=== PATIENT | female | born 1965 | race Caucasian/White ===

== ENCOUNTER 2018-09-07 16:03 | Inpatient (IN) | payer OTHER ==
[~2018-09-07] VITALS: Ht 175.3 cm; Wt 118.0 kg
[~2018-09-07 16:03] MED LIST: ALBU90OI; ALBU90OI INH; ARIP10 PO; AZIT250 PO; BASAGLAR K100 UNIT/1 SC; BUPR150T2 PO; Budeprion Xl300 MG PO; CEPH500 PO; CHEMO; CODBUTACEC PO; CYCL10; DOCU100 PO; ENAL10 PO; ENAL20 PO; FLUC200 PO; GLIP5 PO; GUAI600T33 PO; Humalog Mi100 UNIT/4 SC; INSLI100I SC; INSN100I; INSR10I; INSULANI SC; IRON; LACT10SY PO; LAVAP17G PO; METF500 PO; MULVITMINE; NAPR220 PO; NAPR500; OXYACE5T PO; PRED20 PO; PRILOSEC-OTC; Percocet 5-3251 EACH PO; QUET100; RANI150 PO; VENL75; Zofran4 MG PO; [UNRECOGNIZED DRUG - REMARK]; [UNRECOGNIZED DRUG - REMARK]
[2018-09-07 16:42] LABS: Source, Urine Clean Catch
[2018-09-07 16:57] LABS: Bilirubin, Urine Neg (Neg); Blood, Urine 5+ (Neg); Glucose Qualitative, Urine 4+ (Neg); Ketones, Urine Neg (Neg); Leukocyte Esterase, Urine 2+ (Neg); Nitrite, Urine Neg (Neg); Protein, Urine 2+ (Neg); Urobilinogen, Urine NORM (Normal)
[2018-09-07 17:05] LABS: BASOPHILS ABSOLUTE AUTO 0.12 K/mm3 (0.00-0.23); BASOPHILS PERCENT AUTO 1 % (0-2); EOSINOPHILS ABSOLUTE AUTO 0.83 K/mm3 (0.00-0.68); EOSINOPHILS PERCENT AUTO 5 % (0-6); Hematocrit 46.6 % (33.0-51.0); Hemoglobin 15.2 g/dL (11.5-16.0); IMMATURE GRAN ABSOLUTE AUTO 0.16 K/mm3 (0.00-0.10); IMMATURE GRAN PERCENT AUTO 1 % (0-1); LYMPHOCYTES ABSOLUTE AUTO 4.34 K/mm3 (0.84-5.20); LYMPHOCYTES PERCENT AUTO 25 % (21-46); MONOCYTES ABSOLUTE AUTO 1.16 K/mm3 (0.16-1.47); MONOCYTES PERCENT AUTO 7 % (4-13); Mean Corpuscular HGB Conc 32.6 g/dL (31.5-36.5); Mean Corpuscular Volume 92 fL (80-100); Mean Platelet Volume 10.1 fL (9.1-12.4); NEUTROPHILS ABSOLUTE AUTO 10.62 K/mm3 (1.96-9.15); NEUTROPHILS PERCENT AUTO 62 % (41-73); Platelet Count 352 K/mm3 (150-400); RDW Coefficient Variation 13.3 % (11.7-14.2); RDW Standard Deviation 44.9 fL (35.1-46.3); Red Blood Cell Count 5.06 M/mm3 (3.80-5.20); White Blood Cell Count 17.23 K/mm3 (4.00-11.30)
[2018-09-07 17:07] LABS: Appearance, Urine Hazy (Clear); Color, Urine Pale Yellow (P-Yellow)
[2018-09-07 17:10] LABS: Bacteria Few /hpf; Red Blood Cells, Urine 25-50 /hpf (0-2); Squamous Epithelial Cells Mod /hpf (Few)
[2018-09-07 17:43] LABS: Bilirubin, Total 0.4 mg/dL (0.1-1.0); Bun/Creatinine Ratio 19.6 (12.0-20.0); Calcium, Blood 9.5 mg/dL (8.5-10.1); Creatinine, Blood 1.07 mg/dL (0.40-1.00); Potassium, Blood 4.6 mmol/L (3.5-5.5)
[2018-09-07] MEDS ORDERED: CLOP75 PO (18:30)
[2018-09-07] MEDS ORDERED: ATOR40TA PO (18:30)
[2018-09-07] MEDS ORDERED: Calan40 MG PO (18:30)
[2018-09-07] MEDS ORDERED: OMEPRAZOLE20 MG PO (20:24)
[2018-09-07] MEDS ORDERED: ABAT250V (20:25)
[2018-09-07] MEDS ORDERED: CLON.5 PO (20:26)
[2018-09-07] MEDS ORDERED: LAMO25 PO ×2 (20:26)
[2018-09-07] MEDS ORDERED: CYCL10 PO (20:27)
[2018-09-07] MEDS ORDERED: Zanaflex4 M1 PO (20:27)
[2018-09-07] MEDS ORDERED: ASPI325 PO (20:28)
--- NOTE | 2018-09-07 21:27 | NUR ---
REPORT RECIEVED FROM DEVORAH REVELES RN AND AWAITING PT T/F TO ROOM 305.
--- NOTE | 2018-09-07 21:52 | NUR ---
PT T/F TO ROOM 305 AT 2146 VIA [employer]. PT ORIENTED TO ROOM AND CALL SYSTEM AT THAT TIME. SHE'S A/OX4, ABLE TO SPECIFY NEEDS AND HAS STEADY GAIT TRANSFERRING SELF TO BED. WILL COMPLETE ADMISSION PAPERWORK MOMENTARILY. PT DENIES NEEDS AT THIS TIME.
--- NOTE | 2018-09-07 22:05 | NUR ---
MARLA BIRMINGHAM IN ROOM AT THIS TIME. RN AWAITING ADMISSION ORDERS.
--- NOTE | 2018-09-07 23:54 | NUR ---
PT WAS TAKEN FOR ABDO CT AND HAS RETURNED VIA W/C. PAIN MEDS WERE RECIEVED PER EMAR, AWAITING FULL EFFECT BUT REPORTS SOME IMPROVEMENT ALREADY. HS MEDS WERE RECIEVED AND PT REFUSED MEDS SHE'D TAKEN DAILY ALREADY AT HOME BEFORE ADMIT. SHE DENIED NEEDING HS NOVOLOG COVERAGE D/T TYPICALLY ONLY DOING SS BID AT HOME. SHE IS RECEPTIVE TO AC/HS COVERAGE BUT WOULD LIKE TO START THIS IN AM. METFORMIN WASN'T RX'D AND MARLA BIRMINGHAM DENIED NEED FOR IT AT THIS TIME. NS COMMENCED AT 75 ML/HR. SCD'S ON AND PT IS S.TACH AT 100'S PER TELEMETRY. PT DENIES ADDITIONAL NEEDS AT THIS TIME.
--- NOTE | 2018-09-08 00:21 | NUR ---
TYLENOL RECIEVED PRN FOR C/O 09/23 ABDO, FLANK, SUPRAPUBIC AND BACK PAIN R/T PYELONEPHRITIS. WILL EVALUATE FOR EFFECT.
--- NOTE | 2018-09-08 04:10 | NUR ---
CLEAN CATCH UA OBTAINED AND SENT, CX PENDING.
[2018-09-08 04:37] LABS: Source, Urine Clean Catch
[2018-09-08 04:39] LABS: Bilirubin, Urine Neg (Neg); Blood, Urine 3+ (Neg); Glucose Qualitative, Urine 4+ (Neg); Ketones, Urine Neg (Neg); Leukocyte Esterase, Urine 1+ (Neg); Nitrite, Urine Neg (Neg); Protein, Urine 1+ (Neg); Specific Gravity, Urine 1.015 (1.003-1.022); Urobilinogen, Urine NORM (Normal)
[2018-09-08 04:44] LABS: Appearance, Urine Clear (Clear); Color, Urine Amber (P-Yellow); White Blood Cells, Urine 50-100 /hpf (0-5)
[2018-09-08 04:45] LABS: Bacteria Many /hpf; Squamous Epithelial Cells Few /hpf (Few)
[2018-09-08 04:53] LABS: BASOPHILS ABSOLUTE AUTO 0.12 K/mm3 (0.00-0.23); BASOPHILS PERCENT AUTO 1 % (0-2); EOSINOPHILS ABSOLUTE AUTO 0.83 K/mm3 (0.00-0.68); EOSINOPHILS PERCENT AUTO 7 % (0-6); IMMATURE GRAN PERCENT AUTO 1 % (0-1); LYMPHOCYTES ABSOLUTE AUTO 4.25 K/mm3 (0.84-5.20); LYMPHOCYTES PERCENT AUTO 37 % (21-46); MONOCYTES ABSOLUTE AUTO 0.91 K/mm3 (0.16-1.47); MONOCYTES PERCENT AUTO 8 % (4-13); Mean Corpuscular HGB 30.1 pg (26.0-34.0); Mean Corpuscular HGB Conc 32.5 g/dL (31.5-36.5); Mean Corpuscular Volume 93 fL (80-100); Mean Platelet Volume 10.3 fL (9.1-12.4); NEUTROPHILS ABSOLUTE AUTO 5.32 K/mm3 (1.96-9.15); NEUTROPHILS PERCENT AUTO 46 % (41-73); Platelet Count 327 K/mm3 (150-400); RDW Coefficient Variation 13.2 % (11.7-14.2); RDW Standard Deviation 45.1 fL (35.1-46.3); Red Blood Cell Count 4.32 M/mm3 (3.80-5.20); White Blood Cell Count 11.53 K/mm3 (4.00-11.30)
[2018-09-08 05:09] LABS: Anion Gap 8 mmol/L (6-16); Blood Urea Nitrogen 18 mg/dL (8-24); CO2, Blood 24 mmol/L (21-32); Calcium, Blood 8.8 mg/dL (8.5-10.1); Chloride, Blood 106 mmol/L (98-108); Creatinine, Blood 0.78 mg/dL (0.40-1.00); Glomerular Filtration Rate >60 (60-); Glucose, Blood 243 mg/dL (70-99); Magnesium, Blood 1.9 mg/dL (1.6-2.4); Potassium, Blood 3.9 mmol/L (3.5-5.5); Sodium, Blood 138 mmol/L (136-145)
--- NOTE | 2018-09-08 06:37 | NUR ---
SUMMARY: A/OX4, CALLS APPROPRIATELY AND INDEPENDENT IN ROOM. PT DENIES NAUSEA BUT HAS ABDO, FLANK AND BACK PAIN R/T PYELONEPHRITIS. PT REPORTED TOLERALE PAIN CONTROL AFTER RECIEVING PYRIDIUM, PRN TYLENOL AND SCHEDULED MUSCLE RELAXERS/PAIN MEDS VIA EMAR. SHE HAD ABDO CT THIS SHIFT, SEE RESULT FOR DETAILS. NS WAS COMMENCED AND IV ABX RECIEVED. BOLUSES WERE RECIEVED IN ER. PT TOOK HS MEDS BUT REFUSED DAILY MEDS ALREADY TAKEN PRIOR TO ADMIT. SHE ALSO REFUSED HS NOVOLOG D/T TYPICALLY ONLY TAKING MED BID BUT RECOGNIZES POOR ADA MANAGEMENT AT HOME AND IS WILLING TO COMMMENCE AC/HS COVERAGE TODAY. SCHEDULED LANTUS RECIEVED AND MD DENIED NEED TO RX HOME METFORMIN AT THIS TIME. SHE'S S.TACH AT 90'S-100'S PER TELEMETRY W/VSS AND AFEBRILE. WCTM/REPORT TO DAY RN.
--- NOTE | 2018-09-08 11:00 | NUR ---
Patient is lying in bed and alert. 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 She also shares about the discouragement of long and difficult road of health problems. I listen empathically, explore patients belief system, facilitate a life review, learn about patient's family unit complications, provide pastoral high school counselor and provide prayer. Patient responds well to all interventions and shows signs of restored suzan.
--- NOTE | 2018-09-08 12:17 | NUR ---
Upon receiving a patient referral, I entered patient's room. Patient openly shares about her life, her family and her suzan. Patient mentioned that she is deep pain (8+), nurse enters room shortly after me to administer pain meds. RN says this will make you sleepy, while patient is receiving meds. I provide prayer and patient thanks me. I will continue to be available to patient and family.
--- NOTE | 2018-09-08 16:59 | NUR ---
SHIFT SUMMARY: PATIENT HAS BEEN A/O X 3 THIS SHIFT WITH C/O PAIN TO LOW BACK/FLANK AND STATES THAT THE ORDERED PAIN MEDICATION WAS EFFECTIVE WHEN GIVEN. CBGS HAVE BEEN COVERED WITH SLIDING SCALE AND PATIENT HAS NO S/S OF HYPER/HYPOGLYCEMIA. IV FLUIDS INFUSING VIA PERIPHERAL LINE WITH NO ISSUES OBSERVED. PATIENT HAS BEEN SLEEPING/RESTING MOST OF SHIFT AND USES CALL LIGHT APPROPRIATELY WHEN NEEDED.
--- NOTE | 2018-09-09 05:19 | NUR ---
SHIFT SUMMARY PT ALERT AND ORIENTED, UP TO BATHROOM WITH SBA. PT WITH C/O PAIN AND NAUSEA MEDICATED X1 WITH ZOFRAN AND DILAUDID. SLEPT WELL, NO ACUTE EVENTS NOTED DURING THE NIGHT. WILL CONTINUE TO MONITOR.
[2018-09-09 05:40] LABS: BASOPHILS PERCENT AUTO 1 % (0-2); EOSINOPHILS PERCENT AUTO 9 % (0-6); Hematocrit 39.6 % (33.0-51.0); Hemoglobin 12.9 g/dL (11.5-16.0); IMMATURE GRAN PERCENT AUTO 1 % (0-1); LYMPHOCYTES ABSOLUTE AUTO 3.36 K/mm3 (0.84-5.20); LYMPHOCYTES PERCENT AUTO 32 % (21-46); MONOCYTES PERCENT AUTO 7 % (4-13); Mean Corpuscular HGB 29.8 pg (26.0-34.0); Mean Corpuscular HGB Conc 32.6 g/dL (31.5-36.5); Mean Corpuscular Volume 92 fL (80-100); Mean Platelet Volume 10.1 fL (9.1-12.4); NEUTROPHILS ABSOLUTE AUTO 5.29 K/mm3 (1.96-9.15); NEUTROPHILS PERCENT AUTO 51 % (41-73); Platelet Count 292 K/mm3 (150-400); RDW Coefficient Variation 13.2 % (11.7-14.2); RDW Standard Deviation 44.2 fL (35.1-46.3); Red Blood Cell Count 4.33 M/mm3 (3.80-5.20); White Blood Cell Count 10.45 K/mm3 (4.00-11.30)
[2018-09-09 05:57] LABS: Anion Gap 7 mmol/L (6-16); Blood Urea Nitrogen 14 mg/dL (8-24); Bun/Creatinine Ratio 19.8 (12.0-20.0); CO2, Blood 26 mmol/L (21-32); Calcium, Blood 9.6 mg/dL (8.5-10.1); Chloride, Blood 104 mmol/L (98-108); Creatinine, Blood 0.71 mg/dL (0.40-1.00); Glomerular Filtration Rate >60 (60-); Glucose, Blood 250 mg/dL (70-99); Potassium, Blood 4.6 mmol/L (3.5-5.5); Sodium, Blood 137 mmol/L (136-145)
--- NOTE | 2018-09-09 16:53 | NUR ---
SUMMARY PT RESTING QUIETLY IN BED WATCHING TV, PT HAS BEEN INDEPENDENT IN THE ROOM, PT HAS BEEN PLEASANT AND COOPERATIVE WITH CARE, WILL HAVE A CT SCAN THIS AFTERNOON, NO COMPLAINTS, VSS, WILL CONT TO MONITOR
[2018-09-10 04:58] LABS: BASOPHILS ABSOLUTE AUTO 0.09 K/mm3 (0.00-0.23); BASOPHILS PERCENT AUTO 1 % (0-2); EOSINOPHILS ABSOLUTE AUTO 0.89 K/mm3 (0.00-0.68); EOSINOPHILS PERCENT AUTO 8 % (0-6); Hematocrit 39.7 % (33.0-51.0); Hemoglobin 12.9 g/dL (11.5-16.0); IMMATURE GRAN ABSOLUTE AUTO 0.09 K/mm3 (0.00-0.10); IMMATURE GRAN PERCENT AUTO 1 % (0-1); LYMPHOCYTES ABSOLUTE AUTO 3.28 K/mm3 (0.84-5.20); LYMPHOCYTES PERCENT AUTO 28 % (21-46); MONOCYTES ABSOLUTE AUTO 0.72 K/mm3 (0.16-1.47); MONOCYTES PERCENT AUTO 6 % (4-13); Mean Corpuscular HGB 29.8 pg (26.0-34.0); Mean Corpuscular HGB Conc 32.5 g/dL (31.5-36.5); Mean Corpuscular Volume 92 fL (80-100); Mean Platelet Volume 9.9 fL (9.1-12.4); NEUTROPHILS ABSOLUTE AUTO 6.54 K/mm3 (1.96-9.15); NEUTROPHILS PERCENT AUTO 56 % (41-73); Platelet Count 290 K/mm3 (150-400); RDW Coefficient Variation 13.1 % (11.7-14.2); RDW Standard Deviation 44.2 fL (35.1-46.3); Red Blood Cell Count 4.33 M/mm3 (3.80-5.20); White Blood Cell Count 11.61 K/mm3 (4.00-11.30)
[2018-09-10 05:37] LABS: Anion Gap 7 mmol/L (6-16); Blood Urea Nitrogen 14 mg/dL (8-24); Bun/Creatinine Ratio 18.2 (12.0-20.0); CO2, Blood 27 mmol/L (21-32); Calcium, Blood 9.8 mg/dL (8.5-10.1); Chloride, Blood 104 mmol/L (98-108); Creatinine, Blood 0.77 mg/dL (0.40-1.00); Glomerular Filtration Rate >60 (60-); Glucose, Blood 262 mg/dL (70-99); Potassium, Blood 4.3 mmol/L (3.5-5.5); Sodium, Blood 138 mmol/L (136-145)
--- NOTE | 2018-09-10 05:49 | NUR ---
SHIFT SUMMARY PT SLEPT FAIR DURING THE NIGHT. MEDICATED WITH TYLENOL THIS AM FOR A HEADACHE. UP TO BATHROOM PER SELF. NO ACUTE EVENTS OVERNIGHT, WILL CONTINUE TO MONITOR.
--- NOTE | 2018-09-10 05:51 | NUR ---
SHIFT SUMMARY PT HAS SLEPT ALL NIGHT, OFFERS NO C/O'S. NO ACUTE EVENTS OVER NIGHT, WILL CONTINUE TO MONITOR.
[2018-09-10] MEDS ORDERED: Vsl#3 Capsule1 EACH PO (10:12)
[2018-09-10] MEDS ORDERED: CEPH500 PO (10:13)
--- NOTE | 2018-09-10 11:18 | NUR ---
SUMMARY PT DISCHARGED TO HOME, PT VERBALIZED UNDERSTANDING OF DISCHARGE INSTRUCTIONS, PT BEING FOLLOWED BY [facility] AND FOLLOW UP HAS BEEN MADE, PT WILL BE HERE UNTIL AFTER LUNCH
--- NOTE | 2018-09-10 13:43 | NUR ---
SUMMARY/DISCHARGE PT DISCHARGED TO HOME, PT DECLINED A WHEELCHAIR AND WAS ABLE TO AMBULATE SAFELY TO THE ELEVATOR
== END 2018-09-10 12:59 | disposition home or self-care (01) | DRG 872 ==
LOC: ER 16:03 → MEDS 20:01 → ENPENDDIS 09-10 10:17 → MEDS 09-10 12:59
PROVIDERS: Emergency Medicine; Internal Medicine; Nurse Practitioner Acute Care; ADMIT Internal Medicine
DX: A41.51 Sepsis due to Escherichia coli [E. coli] (principal); N10 Acute pyelonephritis; N17.9 Acute kidney failure, unspecified; C85.90 Non-Hodgkin lymphoma, unspecified, unspecified site; E11.65 Type 2 diabetes mellitus with hyperglycemia; I10 Essential (primary) hypertension; F32.9 Major depressive disorder, single episode, unspecified; E78.5 Hyperlipidemia, unspecified; K21.9 Gastro-esophageal reflux disease without esophagitis; F41.1 Generalized anxiety disorder; E86.0 Dehydration; E66.01 Morbid (severe) obesity due to excess calories; Z86.73 Personal history of transient ischemic attack (TIA), and cerebral infarction without residual deficits; Z88.5 Allergy status to narcotic agent; Z79.84 Long term (current) use of oral hypoglycemic drugs; Z79.02 Long term (current) use of antithrombotics/antiplatelets; Z79.4 Long term (current) use of insulin; Z79.899 Other long term (current) drug therapy; Z3A.36 36 weeks gestation of pregnancy; Z87.891 Personal history of nicotine dependence
CPT/HCPCS: 36415; 74176; 74177; 80048; 80053; 81001; 82947; 83605; 83735; 85025; 87040; 87077; 87086; 87186; 96361; 96374; 96375; 99284-25; A9270; J0696; J1170; J1650; J2405; J7030; Q9967

== ENCOUNTER → 2018-10-27 | Outpatient (CLI) | payer OTHER ==
[~2018-10-27] MED LIST changes: +ABAT250V; +ASPI325 PO; +ATOR40TA PO; +CLON.5 PO; +CLOP75 PO; +CYCL10 PO; +Calan40 MG PO; +LAMO25 PO; +OMEPRAZOLE20 MG PO; +Vsl#3 Capsule1 EACH PO; +Zanaflex4 M1 PO
[2018-10-27 15:14] LABS: Source, Urine Clean Catch
[2018-10-27 18:41] LABS: Bilirubin, Urine Neg (Neg); Blood, Urine 1+ (Neg); Glucose Qualitative, Urine 4+ (Neg); Ketones, Urine 1+ (Neg); Leukocyte Esterase, Urine 2+ (Neg); Nitrite, Urine Pos (Neg); Protein, Urine 2+ (Neg); Specific Gravity, Urine 1.015 (1.003-1.022); Urobilinogen, Urine NORM (Normal)
[2018-10-27 19:25] LABS: Appearance, Urine Hazy (Clear); Color, Urine Yellow (P-Yellow)
[2018-10-27 19:26] LABS: Bacteria Many /hpf; Red Blood Cells, Urine 0-2 /hpf (0-2); Squamous Epithelial Cells Few /hpf (Few); White Blood Cells, Urine 25-50 /hpf (0-5)
== END ==
LOC: LAB SHORT 14:57 → LAB 14:57
PROVIDERS: Nurse Practitioner Family
DX: R30.0 Dysuria (principal)
CPT/HCPCS: 81001; 87077; 87086; 87186

== ENCOUNTER → 2018-11-12 | Outpatient (CLI) | payer OTHER ==
[2018-11-12 17:19] LABS: Bilirubin, Urine Neg (Neg); Blood, Urine Neg (Neg); Glucose Qualitative, Urine 4+ (Neg); Ketones, Urine Neg (Neg); Leukocyte Esterase, Urine Neg (Neg); Nitrite, Urine Pos (Neg); Protein, Urine Neg (Neg); Specific Gravity, Urine 1.015 (1.003-1.022); Urobilinogen, Urine NORM (Normal)
[2018-11-12 17:29] LABS: Appearance, Urine Clear (Clear); Color, Urine Yellow (P-Yellow)
[2018-11-12 17:34] LABS: Red Blood Cells, Urine 0-2 /hpf (0-2)
[2018-11-12 17:35] LABS: Bacteria Many /hpf
[2018-11-12 17:36] LABS: Squamous Epithelial Cells Rare /hpf (Few)
== END | disposition home or self-care (01) ==
LOC: LAB 17:04 → LAB SHORT 17:04
PROVIDERS: Internal Medicine Hematology & Oncology
DX: N39.0 Urinary tract infection, site not specified (principal); R30.0 Dysuria
CPT/HCPCS: 81001; 87077; 87086; 87186

== ENCOUNTER → 2018-12-16 | Outpatient (CLI) | payer OTHER | END | disposition home or self-care (01) | LOC: LAB 10:00 → LAB SHORT 10:00 → LAB FUT 12-16 18:10 | DX: N39.0 Urinary tract infection, site not specified (principal) | CPT/HCPCS: 87077; 87086; 87186 ==

== ENCOUNTER → 2019-01-22 | Outpatient (CLI) | payer OTHER ==
[2019-01-22 19:59] LABS: CHOL/HDL RATIO 4.4; Cholesterol 172 mg/dL (50-200); HDL Cholesterol 39 mg/dL (>39); LDL/HDL RATIO Unable to Calculate; Low Density Lipoprotein Chol Unable to Calculate mg/dL (0-110); Triglycerides 443 mg/dL (30-160); Very Low Density Lipoprot Chol 89 mg/dL (6-32)
== END | disposition home or self-care (01) ==
LOC: LAB 15:15 → LAB SHORT 15:15
DX: E11.8 Type 2 diabetes mellitus with unspecified complications (principal)
CPT/HCPCS: 80061; 83036

== ENCOUNTER → 2019-04-23 | Outpatient (CLI) | payer OTHER | END | disposition home or self-care (01) | LOC: LAB 19:16 → LAB SHORT 19:16 → EDSTATUS 04-23 18:35 → LAB FUT 04-23 18:35 | DX: E78.2 Mixed hyperlipidemia (principal); E11.65 Type 2 diabetes mellitus with hyperglycemia; N39.0 Urinary tract infection, site not specified | CPT/HCPCS: 87086 ==

== ENCOUNTER → 2019-11-11 | Outpatient (CLI) | payer OTHER ==
[2019-11-12 11:51] LABS: Candida species (DNA Probe) Positive (NEGATIVE); G. vaginalis (DNA Probe) Negative (NEGATIVE); T. vaginalis (DNA Probe) Negative (NEGATIVE)
[2019-11-12 14:08] LABS: HPV 16 Negative (Negative); HPV 18 Negative (Negative); HPV OTHER HR TYPES Negative (Negative)
== END ==
LOC: LAB SHORT 14:03 → LAB UCHC 14:03
PROVIDERS: Nurse Practitioner
DX: Z01.419 Encounter for gynecological examination (general) (routine) without abnormal findings (principal)
CPT/HCPCS: 87480; 87510; 87624; 87660; G0123

== ENCOUNTER 2020-08-31 22:12 | Observation (INO) | payer OTHER ==
[~2020-08-31] VITALS: Ht 175.3 cm; Wt 113.4 kg
[~2020-08-31 22:12] MED LIST changes: -ENAL20 PO; +HUMALOG MI100 UNIT/1 SC; -Humalog Mi100 UNIT/4 SC
[2020-08-31 23:26] LABS: BASOPHILS ABSOLUTE AUTO 0.26 K/mm3 (0.00-0.23); BASOPHILS PERCENT AUTO 1 % (0-2); EOSINOPHILS ABSOLUTE AUTO 0.87 K/mm3 (0.00-0.68); EOSINOPHILS PERCENT AUTO 4 % (0-6); Hematocrit 46.2 % (33.0-51.0); Hemoglobin 15.3 g/dL (11.5-16.0); Mean Corpuscular HGB Conc 33.1 g/dL (31.5-36.5); Mean Corpuscular Volume 94 fL (80-100); Mean Platelet Volume 10.2 fL (9.1-12.4); Platelet Count 336 K/mm3 (150-400); RDW Coefficient Variation 13.3 % (11.7-14.2); Red Blood Cell Count 4.93 M/mm3 (3.80-5.20); White Blood Cell Count 22.11 K/mm3 (4.00-11.30)
[2020-08-31 23:27] LABS: IMMATURE GRAN ABSOLUTE AUTO 0.41 K/mm3 (0.00-0.10); IMMATURE GRAN PERCENT AUTO 2 % (0-1); LYMPHOCYTES ABSOLUTE AUTO 6.61 K/mm3 (0.84-5.20); LYMPHOCYTES PERCENT AUTO 30 % (21-46); MONOCYTES ABSOLUTE AUTO 1.21 K/mm3 (0.16-1.47); MONOCYTES PERCENT AUTO 6 % (4-13); NEUTROPHILS ABSOLUTE AUTO 12.75 K/mm3 (1.96-9.15); NEUTROPHILS PERCENT AUTO 58 % (41-73)
[2020-08-31 23:43] LABS: Alanine Aminotransfer (ALT/SGP 63 U/L (12-78); Albumin, Blood 3.8 g/dL (3.4-5.0); Albumin/Globulin Ratio 0.9 (0.8-1.8); Alk Phos 145 U/L (50-136); Anion Gap 11 mmol/L (6-16); Aspartate Aminotrans (AST/SGOT 45 U/L (12-37); Bilirubin, Total 0.4 mg/dL (0.1-1.0); Blood Urea Nitrogen 26 mg/dL (8-24); Bun/Creatinine Ratio 27.1 (12.0-20.0); CO2, Blood 22 mmol/L (21-32); Chloride, Blood 97 mmol/L (98-108); Creatinine, Blood 0.96 mg/dL (0.40-1.00); Globulin, Blood 4.2 g/dL (2.2-4.0); Glomerular Filtration Rate >60 (60-); Glucose, Blood 465 mg/dL (70-99); Sodium, Blood 130 mmol/L (136-145)
[2020-09-01 04:57] LABS: Hematocrit 42.6 % (33.0-51.0); Hemoglobin 14.3 g/dL (11.5-16.0); Mean Corpuscular HGB 31.2 pg (26.0-34.0); Mean Corpuscular HGB Conc 33.6 g/dL (31.5-36.5); Mean Corpuscular Volume 93 fL (80-100); Mean Platelet Volume 10.2 fL (9.1-12.4); Platelet Count 277 K/mm3 (150-400); RDW Coefficient Variation 13.3 % (11.7-14.2); RDW Standard Deviation 44.8 fL (35.1-46.3); Red Blood Cell Count 4.59 M/mm3 (3.80-5.20); White Blood Cell Count 18.39 K/mm3 (4.00-11.30)
[2020-09-01 05:20] LABS: BAND PERCENT MAN 5 % (0-8); BASOPHILS PERCENT MAN 0 % (0-2); EOSINOPHILS ABSOLUTE MAN 0.18 K/mm3 (0.00-0.68); EOSINOPHILS PERCENT MAN 1 % (0-6); LYMPHOCYTES ABSOLUTE MAN 8.09 K/mm3 (0.84-5.20); LYMPHOCYTES PERCENT MAN 44 % (21-46); METAMYELOCYTE ABSOLUTE MAN 0.18 K/mm3 (0.00-0.00); METAMYELOCYTE PERCENT MAN 1 % (0-0); MONOCYTES ABSOLUTE MAN 1.47 K/mm3 (0.16-1.47); MONOCYTES PERCENT MAN 8 % (4-13); NEUTROPHILS ABSOLUTE MAN 8.45 K/mm3 (1.96-9.15); SEG NEUTROPHILS PERCENT MAN 41 % (41-73); TOTAL CELLS COUNTED 100
--- NOTE | 2020-09-01 05:20 | NUR ---
PATIENT IS A NEW ADMIT FROM THE ED. TWO ASSIST STAND/PIVOT TRANSFER FROM [facility] [place] TO BED REPORTING DIZZY WITH MOVEMENT. AXOX 4 ON ROOM AIR. TELEMETRY PLACED AND TECH REPORTS ST 101. DENIES CHEST PAIN, SOB, AND N/V. PATIENT ORIENTED TO ROOM AND CALL LIGHT SYSTEM. REPORTS SHE AND HER DAUGHTER LIVE WITH HER NEICE AT THIS TIME. PATIENT REPORTS CHECKING HER GLUCOSE ONCE PER MONTH AND T2DM SINCE 1993. WATCHING TV AFTER ADMISSION. CALL LIGHT IN REACH.
[2020-09-01 05:24] LABS: Alanine Aminotransfer (ALT/SGP 52 U/L (12-78); Albumin, Blood 3.5 g/dL (3.4-5.0); Alk Phos 149 U/L (50-136); Anion Gap 8 mmol/L (6-16); Aspartate Aminotrans (AST/SGOT 28 U/L (12-37); Bilirubin, Total 0.2 mg/dL (0.1-1.0); Blood Urea Nitrogen 25 mg/dL (8-24); Bun/Creatinine Ratio 27.8 (12.0-20.0); CO2, Blood 24 mmol/L (21-32); Calcium, Blood 8.9 mg/dL (8.5-10.1); Chloride, Blood 100 mmol/L (98-108); Globulin, Blood 3.5 g/dL (2.2-4.0); Glomerular Filtration Rate >60 (60-); Glucose, Blood 329 mg/dL (70-99); Potassium, Blood 4.3 mmol/L (3.5-5.5); Sodium, Blood 132 mmol/L (136-145)
--- NOTE | 2020-09-01 06:28 | NUR ---
NS STARTED AT 75mL/HR X 1.5 BAGS.
[2020-09-01 06:47] LABS: Source, Urine Clean Catch
[2020-09-01 06:51] LABS: Appearance, Urine Clear (Clear); Bilirubin, Urine Neg (Neg); Blood, Urine Neg (Neg); Glucose Qualitative, Urine 4+ (Neg); Ketones, Urine Neg (Neg); Leukocyte Esterase, Urine 1+ (Neg); Nitrite, Urine Neg (Neg); Protein, Urine 1+ (Neg); Specific Gravity, Urine 1.015 (1.003-1.022); Urobilinogen, Urine NORM (Normal)
[2020-09-01 07:09] LABS: Color, Urine Pale Yellow (P-Yellow)
[2020-09-01 07:11] LABS: Bacteria Few /hpf; Red Blood Cells, Urine Not Seen /hpf (0-2); Squamous Epithelial Cells Few /hpf (Few)
--- NOTE | 2020-09-01 18:28 | NUR ---
DISCHARGE: DAUGHTER REQUESTS TO BE PRESENT FOR DISCHARGE EDUCATION.
--- NOTE | 2020-09-02 04:12 | NUR ---
SHIFT SUMMARY ASSUMED CARE OF PT AT 1900. PT IS A/OX4. HEART SOUNDS REGULAR, LUNG SOUNDS DIMINISHED. PT WAS A SBA TO [facility] DURING THE NIGHT. PT STILL COMPLAINS OF VERTIGO. PT HAD NO OTHER COMPLAINTS AND SLEPT T/O THE NIGHT. CALL LIGHT IN REACH, BED IN LOWEST POSTION.
--- NOTE | 2020-09-03 04:27 | NUR ---
SHIFT SUMMARY ASSUMED CARE OF PT AT 1900. PT IS A/OX4. HEART SOUNDS REGULAR, LUNG SOUNDS CLEAR. PT C/O PAIN IN HER EXTREMITIES, MEDICATED PER EMAR. PT WAS A 1P SBA TO BATHROOM. PT STATES HER VERTIGO HAS IMPROVED AFTER THARAPY. CALL LIGHT IN REACH, BED IN LOWESET POSTION.
[2020-09-03] MEDS ORDERED: GABA300 PO (13:10)
[2020-09-03] MEDS ORDERED: MECL25 PO (13:10)
--- NOTE | 2020-09-03 18:15 | NUR ---
PATIENT D/C'D TO HOME WITH FAMILY. RX MEDICATIONS FAXED TO [facility]. DC INSTRUCTIONS AND EDUCATION DISCUSSED WITH PATIENT AND COPY PROVIDED. PATIENT DENIES ANY FURTHER QUESTIONS OR CONCERNS.
== END 2020-09-03 17:23 | disposition home or self-care (01) ==
LOC: ER 22:12 → MEDS 22:14 → ER 09-01 03:31 → MEDS 09-01 03:31
PROVIDERS: Emergency Medicine; ADMIT Internal Medicine
DX: H81.10 Benign paroxysmal vertigo, unspecified ear (principal); E11.65 Type 2 diabetes mellitus with hyperglycemia; I10 Essential (primary) hypertension; E78.5 Hyperlipidemia, unspecified; F41.1 Generalized anxiety disorder; K21.9 Gastro-esophageal reflux disease without esophagitis; E11.51 Type 2 diabetes mellitus with diabetic peripheral angiopathy without gangrene; R19.7 Diarrhea, unspecified; F31.9 Bipolar disorder, unspecified; R00.0 Tachycardia, unspecified; I65.21 Occlusion and stenosis of right carotid artery; H93.19 Tinnitus, unspecified ear; Z86.73 Personal history of transient ischemic attack (TIA), and cerebral infarction without residual deficits; Z79.4 Long term (current) use of insulin
CPT/HCPCS: 36415; 70450; 70496; 70498; 80053; 81001; 82947; 84484; 85025; 87086; 93005; 93010; 96361; 96372; 96374; 96375; 97112; 97161; 99285-25; A9270; G0378; J1200; J1650; J2405; J2765; J7030; Q9967

== ENCOUNTER 2021-01-25 12:30 | Day surgery (SDC) | payer OTHER ==
[~2021-01-25] VITALS: Ht 175.3 cm; Wt 115.2 kg
[~2021-01-25 12:30] MED LIST changes: +GABA300 PO; +MECL25 PO
--- NOTE | 2021-01-25 13:14 | NUR ---
01/25/21 1314 Uri Ruiz TETRACAINE AND PLEDGET PLACED IN LEFT EYE BY [facility].TMG
== END 2021-01-25 15:10 | disposition home or self-care (01) ==
LOC: ORSCSDS 12:30
PROVIDERS: Ophthalmology
PROC: 08RK3JZ Replacement of Left Lens with Synthetic Substitute, Percutaneous Approach (ICD-10-PCS; principal; 2021-01-25 14:00)
DX: H25.12 Age-related nuclear cataract, left eye (principal); I10 Essential (primary) hypertension; E78.5 Hyperlipidemia, unspecified; I25.10 Atherosclerotic heart disease of native coronary artery without angina pectoris; J44.9 Chronic obstructive pulmonary disease, unspecified; E11.9 Type 2 diabetes mellitus without complications; Z79.4 Long term (current) use of insulin; Z79.899 Other long term (current) drug therapy; E66.01 Morbid (severe) obesity due to excess calories; Z68.37 Body mass index [BMI] 37.0-37.9, adult
CPT/HCPCS: 82947; J2001; J2250; J3010; J3301; J7040; V2632

== ENCOUNTER 2021-02-01 12:12 | Day surgery (SDC) | payer OTHER ==
[~2021-02-01] VITALS: Ht 175.3 cm; Wt 115.3 kg
[2021-02-01] MEDS ORDERED: Enalapril Malea20 MG PO (13:04)
--- NOTE | 2021-02-01 13:11 | NUR ---
02/01/21 1311 Uri Ruiz CALL LIGHT WITHIN REACH. EYE DROPS AT 1308 PLEDGET AT 1310
== END 2021-02-01 14:29 | disposition home or self-care (01) ==
LOC: ORSCSDS 12:12
PROVIDERS: Ophthalmology
PROC: 08RJ3JZ Replacement of Right Lens with Synthetic Substitute, Percutaneous Approach (ICD-10-PCS; principal; 2021-02-01 14:00)
DX: H25.11 Age-related nuclear cataract, right eye (principal); I10 Essential (primary) hypertension; Z87.891 Personal history of nicotine dependence; J45.909 Unspecified asthma, uncomplicated; E11.9 Type 2 diabetes mellitus without complications; Z79.84 Long term (current) use of oral hypoglycemic drugs; E78.00 Pure hypercholesterolemia, unspecified; E66.01 Morbid (severe) obesity due to excess calories; Z68.37 Body mass index [BMI] 37.0-37.9, adult; Z79.899 Other long term (current) drug therapy
CPT/HCPCS: 82947; J2001; J2250; J3010; J3301; J7040; V2632

== ENCOUNTER → 2021-03-19 | Outpatient (CLI) | payer OTHER ==
[~2021-03-19] MED LIST changes: +Enalapril Malea20 MG PO
[2021-03-19 19:45] LABS: Albumin, Blood 3.6 g/dL (3.4-5.0); Bilirubin, Direct 0.1 mg/dL (0.0-0.3); Bilirubin, Indirect 0.3 mg/dL (0.1-0.7); Bilirubin, Total 0.4 mg/dL (0.1-1.0); Globulin, Blood 3.6 g/dL (2.2-4.0); Total Protein, Blood 7.2 g/dL (6.4-8.2)
== END | disposition home or self-care (01) ==
LOC: LAB SHORT 14:20
PROVIDERS: Nurse Practitioner
DX: B35.1 Tinea unguium (principal)
CPT/HCPCS: 80076

== ENCOUNTER → 2021-06-25 | Outpatient (CLI) | payer OTHER | END | disposition home or self-care (01) | LOC: LAB SHORT 20:00 | DX: E11.65 Type 2 diabetes mellitus with hyperglycemia (principal) | CPT/HCPCS: 82043 ==

== ENCOUNTER 2022-06-06 02:53 | Day surgery (SDC) | payer OTHER | END 2022-06-06 22:49 | disposition home or self-care (01) | LOC: WOUND 02:53 | DX: E11.621 Type 2 diabetes mellitus with foot ulcer (principal); L97.522 Non-pressure chronic ulcer of other part of left foot with fat layer exposed; E11.40 Type 2 diabetes mellitus with diabetic neuropathy, unspecified; I10 Essential (primary) hypertension | CPT/HCPCS: A9270; G0463 ==

== ENCOUNTER 2022-06-13 01:47 | Day surgery (SDC) | payer OTHER | END 2022-06-13 22:34 | disposition home or self-care (01) | LOC: WOUND 01:47 | DX: L89.894 Pressure ulcer of other site, stage 4 (principal); E11.621 Type 2 diabetes mellitus with foot ulcer; E11.59 Type 2 diabetes mellitus with other circulatory complications; E11.21 Type 2 diabetes mellitus with diabetic nephropathy; I10 Essential (primary) hypertension | CPT/HCPCS: G0463 ==

== ENCOUNTER 2022-06-21 02:08 | Day surgery (SDC) | payer OTHER | END 2022-06-21 22:48 | disposition home or self-care (01) | LOC: WOUND 02:08 | DX: E11.621 Type 2 diabetes mellitus with foot ulcer (principal); L97.422 Non-pressure chronic ulcer of left heel and midfoot with fat layer exposed; L89.894 Pressure ulcer of other site, stage 4; E11.59 Type 2 diabetes mellitus with other circulatory complications; E11.21 Type 2 diabetes mellitus with diabetic nephropathy; I10 Essential (primary) hypertension | CPT/HCPCS: A9270; G0463 ==

== ENCOUNTER 2022-07-05 00:29 | Day surgery (SDC) | payer OTHER | END 2022-07-05 22:58 | disposition home or self-care (01) | LOC: WOUND 00:29 | DX: E11.621 Type 2 diabetes mellitus with foot ulcer (principal); L97.422 Non-pressure chronic ulcer of left heel and midfoot with fat layer exposed; L89.893 Pressure ulcer of other site, stage 3; E11.59 Type 2 diabetes mellitus with other circulatory complications; E11.21 Type 2 diabetes mellitus with diabetic nephropathy; I10 Essential (primary) hypertension | CPT/HCPCS: A9270 ==

== ENCOUNTER 2022-07-19 02:05 | Day surgery (SDC) | payer OTHER | END 2022-07-19 22:59 | disposition home or self-care (01) | LOC: WOUND 02:05 | DX: E11.621 Type 2 diabetes mellitus with foot ulcer (principal); L97.522 Non-pressure chronic ulcer of other part of left foot with fat layer exposed; L89.893 Pressure ulcer of other site, stage 3; E11.59 Type 2 diabetes mellitus with other circulatory complications; E11.21 Type 2 diabetes mellitus with diabetic nephropathy; I10 Essential (primary) hypertension | CPT/HCPCS: G0463 ==

== ENCOUNTER 2022-08-02 02:55 | Day surgery (SDC) | payer OTHER | END 2022-08-04 22:41 | disposition home or self-care (01) | LOC: WOUND 02:55 | DX: E11.621 Type 2 diabetes mellitus with foot ulcer (principal); L97.522 Non-pressure chronic ulcer of other part of left foot with fat layer exposed; L89.893 Pressure ulcer of other site, stage 3; E11.59 Type 2 diabetes mellitus with other circulatory complications; E11.21 Type 2 diabetes mellitus with diabetic nephropathy; I10 Essential (primary) hypertension | CPT/HCPCS: A9270 ==

== ENCOUNTER 2022-08-09 02:29 | Day surgery (SDC) | payer OTHER | END 2022-08-11 22:53 | disposition home or self-care (01) | LOC: WOUND 02:29 | DX: E11.621 Type 2 diabetes mellitus with foot ulcer (principal); L97.522 Non-pressure chronic ulcer of other part of left foot with fat layer exposed; L89.893 Pressure ulcer of other site, stage 3; E11.59 Type 2 diabetes mellitus with other circulatory complications; E11.21 Type 2 diabetes mellitus with diabetic nephropathy; I10 Essential (primary) hypertension | CPT/HCPCS: G0463 ==

== ENCOUNTER 2023-01-02 03:29 | Day surgery (SDC) | payer OTHER | END 2023-01-02 22:43 | disposition home or self-care (01) | LOC: WOUND 03:29 | DX: L89.622 Pressure ulcer of left heel, stage 2 (principal); E11.42 Type 2 diabetes mellitus with diabetic polyneuropathy | CPT/HCPCS: A9270; G0463 ==

== ENCOUNTER 2023-01-09 03:25 | Day surgery (SDC) | payer OTHER | END 2023-01-09 22:36 | disposition home or self-care (01) | LOC: WOUND 03:25 | DX: E11.621 Type 2 diabetes mellitus with foot ulcer (principal); L97.429 Non-pressure chronic ulcer of left heel and midfoot with unspecified severity; E11.42 Type 2 diabetes mellitus with diabetic polyneuropathy | CPT/HCPCS: G0463 ==